=== PATIENT | male | born 1960 | race Two or more races ===

== ENCOUNTER 2018-12-28 19:56 | Emergency (ER) | payer MEDICARE, MEDICAID ==
[~2018-12-28] VITALS: Ht 172.7 cm; Wt 80.0 kg
[~2018-12-28 19:56] MED LIST: APIX5TAB3 PO; CALC667C2 PO; CARCD120C PO; FURO80TA3 PO; INSU100C10 SQ; INSU100V9 SQ; LABE300T2 PO; LANT1000 PO; PRAZ2CAP2 PO; VALS1TAB79 PO; VIT-6 PO
[2018-12-28] MEDS ORDERED: HYDR-4383 PO (22:24)
[2018-12-28] MEDS ORDERED: DOCU-28 PO (22:24)
[2018-12-28] MEDS ORDERED: HYDROcodone/acetaminophen 5mg/325mg tablet PO ONE (23:00)
[2018-12-28 23:13] VITALS: BP 161/80
== END 2018-12-28 23:15 | disposition home or self-care (01) ==
LOC: ER 19:57
DX: S92.061A Displaced intraarticular fracture of right calcaneus, initial encounter for closed fracture (principal); S90.01XA Contusion of right ankle, initial encounter; E11.22 Type 2 diabetes mellitus with diabetic chronic kidney disease; I12.0 Hypertensive chronic kidney disease with stage 5 chronic kidney disease or end stage renal disease; N18.6 End stage renal disease; K21.9 Gastro-esophageal reflux disease without esophagitis; Z98.890 Other specified postprocedural states; Z99.2 Dependence on renal dialysis; Z79.4 Long term (current) use of insulin; Z79.01 Long term (current) use of anticoagulants; Z79.899 Other long term (current) drug therapy; W11.XXXA Fall on and from ladder, initial encounter; Y93.89 Activity, other specified; Y92.89 Other specified places as the place of occurrence of the external cause; Y99.8 Other external cause status
CPT/HCPCS: 29515; 73610; 73630; 73700; 99284

== ENCOUNTER 2018-12-30 10:12 | Outpatient (CLI) | payer MEDICARE, MEDICAID ==
[~2018-12-30 10:12] MED LIST changes: +DOCU-28 PO; +HYDR-4383 PO
[2018-12-30 11:25] VITALS: BP 123/62
== END 2018-12-30 11:30 | disposition home or self-care (01) ==
LOC: ORTHO 10:12
PROVIDERS: ATTEND Orthopaedic Surgery
DX: S92.009A Unspecified fracture of unspecified calcaneus, initial encounter for closed fracture (principal); I10 Essential (primary) hypertension; E11.9 Type 2 diabetes mellitus without complications; X58.XXXA Exposure to other specified factors, initial encounter; Y93.89 Activity, other specified; Y92.89 Other specified places as the place of occurrence of the external cause; Y99.8 Other external cause status
CPT/HCPCS: 99212

== ENCOUNTER 2019-01-01 19:35 | Emergency (ER) | payer MEDICARE, MEDICAID ==
[~2019-01-01] VITALS: Ht 172.7 cm; Wt 83.0 kg
[2019-01-01 20:01] VITALS: BP 174/79
== END 2019-01-01 23:36 | disposition home or self-care (01) ==
LOC: ER 19:36
DX: S92.001D Unspecified fracture of right calcaneus, subsequent encounter for fracture with routine healing (principal); I12.9 Hypertensive chronic kidney disease with stage 1 through stage 4 chronic kidney disease, or unspecified chronic kidney disease; N18.9 Chronic kidney disease, unspecified; E11.22 Type 2 diabetes mellitus with diabetic chronic kidney disease; K21.9 Gastro-esophageal reflux disease without esophagitis; Z98.890 Other specified postprocedural states; Z79.4 Long term (current) use of insulin; Z79.899 Other long term (current) drug therapy; W11.XXXD Fall on and from ladder, subsequent encounter
CPT/HCPCS: 29515; 99284

== ENCOUNTER 2019-01-08 14:19 | Emergency (ER) | payer MEDICARE, MEDICAID ==
[~2019-01-08] VITALS: Ht 162.6 cm; Wt 83.0 kg
[2019-01-08 14:34] VITALS: BP 185/84
--- NOTE | 2019-01-08 16:03 | NUR ---
SON: PEYMAN [phone]
== END 2019-01-08 17:05 | disposition home or self-care (01) ==
LOC: ER 14:20
DX: S92.001D Unspecified fracture of right calcaneus, subsequent encounter for fracture with routine healing (principal); K21.9 Gastro-esophageal reflux disease without esophagitis; I12.0 Hypertensive chronic kidney disease with stage 5 chronic kidney disease or end stage renal disease; E11.22 Type 2 diabetes mellitus with diabetic chronic kidney disease; N18.6 End stage renal disease; Z99.2 Dependence on renal dialysis; Z98.890 Other specified postprocedural states; Z79.4 Long term (current) use of insulin; Z79.899 Other long term (current) drug therapy; W11.XXXD Fall on and from ladder, subsequent encounter
CPT/HCPCS: 29515; 73650; 99284

== ENCOUNTER 2019-02-04 11:29 | Outpatient (CLI) | payer MEDICARE, MEDICAID ==
[2019-02-04 11:47] VITALS: BP 161/91
== END 2019-02-04 12:40 | disposition home or self-care (01) ==
LOC: ORTHO 11:29
PROVIDERS: ATTEND Orthopaedic Surgery
DX: S92.001D Unspecified fracture of right calcaneus, subsequent encounter for fracture with routine healing (principal); I10 Essential (primary) hypertension; E11.9 Type 2 diabetes mellitus without complications; X58.XXXD Exposure to other specified factors, subsequent encounter
CPT/HCPCS: 73650; G0463

== ENCOUNTER 2019-03-18 11:21 | Outpatient (CLI) | payer MEDICARE, MEDICAID ==
[2019-03-18 11:44] VITALS: BP 178/104
== END 2019-03-18 13:00 | disposition home or self-care (01) ==
LOC: ORTHO 11:21
PROVIDERS: ATTEND Orthopaedic Surgery
DX: S92.021D Displaced fracture of anterior process of right calcaneus, subsequent encounter for fracture with routine healing (principal); I10 Essential (primary) hypertension; E11.9 Type 2 diabetes mellitus without complications; X58.XXXD Exposure to other specified factors, subsequent encounter
CPT/HCPCS: 73650; G0463

== ENCOUNTER → 2019-05-20 | Outpatient (CLI) | payer MEDICARE, MEDICAID | END | disposition home or self-care (01) | LOC: ORTHO 12:00 | PROVIDERS: ATTEND Orthopaedic Surgery | DX: S92.001D Unspecified fracture of right calcaneus, subsequent encounter for fracture with routine healing (principal); X58.XXXD Exposure to other specified factors, subsequent encounter | CPT/HCPCS: 73650; G0463 ==

== ENCOUNTER 2019-06-01 16:02 | Outpatient (CLI) | payer MEDICARE, MEDICAID | END 2019-06-01 23:59 | disposition home or self-care (01) | LOC: DCI 16:02 | DX: Z00.00 Encounter for general adult medical examination without abnormal findings (principal) ==

== ENCOUNTER 2019-07-13 09:23 | Outpatient (CLI) | payer MEDICARE, MEDICAID ==
[2019-07-13 10:00] VITALS: BP 184/86
== END 2019-07-13 10:11 | disposition home or self-care (01) ==
LOC: ORTHO 09:23
PROVIDERS: ATTEND Nurse Practitioner
DX: S92.334A Nondisplaced fracture of third metatarsal bone, right foot, initial encounter for closed fracture (principal); S92.344A Nondisplaced fracture of fourth metatarsal bone, right foot, initial encounter for closed fracture; S92.001D Unspecified fracture of right calcaneus, subsequent encounter for fracture with routine healing; X58.XXXA Exposure to other specified factors, initial encounter; Y93.89 Activity, other specified; Y92.89 Other specified places as the place of occurrence of the external cause; Y99.8 Other external cause status
CPT/HCPCS: 73630; 73650; G0463

== ENCOUNTER 2019-07-27 09:45 | Outpatient (CLI) | payer MEDICARE, MEDICAID ==
[2019-08-24] MEDS ORDERED: FLO0.4C PO (16:15)
[2019-08-24] MEDS ORDERED: CHOL400C8 PO (16:15)
[2019-08-24] MEDS ORDERED: PANT40TA4 PO (16:15)
[2019-08-24] MEDS ORDERED: SEVE800T7 PO (16:15)
[2019-08-24] MEDS ORDERED: DILT180C53 PO (16:15)
[2019-08-24] MEDS ORDERED: LOSA100T57 PO (16:15)
[2019-08-24] MEDS ORDERED: PRAM0.755 PO (16:15)
[2019-08-24] MEDS ORDERED: LABE100T5 PO (16:15)
[2019-08-24] MEDS ORDERED: CALC667T6 PO (16:15)
[2019-08-24] MEDS ORDERED: FOLI0.8T22 PO (16:17)
== END 2019-07-27 10:30 | disposition home or self-care (01) ==
LOC: ORTHO 09:45
PROVIDERS: ATTEND Nurse Practitioner
DX: S92.334D Nondisplaced fracture of third metatarsal bone, right foot, subsequent encounter for fracture with routine healing (principal); S92.344D Nondisplaced fracture of fourth metatarsal bone, right foot, subsequent encounter for fracture with routine healing; X58.XXXD Exposure to other specified factors, subsequent encounter
CPT/HCPCS: 73630; G0463

== ENCOUNTER 2019-08-25 10:07 | Day surgery (SDC) | payer MEDICARE, MEDICAID ==
[2019-08-24 11:50] LABS: BASOPHILS % (AUTO) 0.8 % (0-1); EOSINOPHILS # (AUTO) 0.2 X10'3 (0-0.9); EOSINOPHILS % (AUTO) 4.7 % (0-6); LYMPHOCYTES # (AUTO) 0.7 X10'3 (1.1-4.8); MEAN CORPUSCULAR HEMOGLOBIN 31.6 PG (27.0-31.0); MEAN CORPUSCULAR HGB CONC 34.4 g/dL (33.0-36.5); MEAN CORPUSCULAR VOLUME 92.1 FL (78-98); MEAN PLATELET VOLUME 8.8 FL (7.4-10.4); MONOCYTES # (AUTO) 0.7 X10'3 (0-0.9); MONOCYTES % (AUTO) 13.3 % (2-12); NEUTROPHILS # (AUTO) 3.3 X10'3 (1.8-7.7); NEUTROPHILS % (AUTO) 66.2 % (42-75); PRE OP HEMOGLOBIN 11.3 g/dL (14.0-17.9); PRE OP PLATELET COUNT 177 X10'3 (140-440); RED BLOOD COUNT 3.58 X10'6 (4.70-6.10); RED CELL DISTRIBUTION WIDTH 18.3 % (11.5-14.5)
[2019-08-24 12:17] LABS: ALBUMIN 3.9 G/DL (3.4-5.0); ALBUMIN/GLOBULIN RATIO 0.9 (1.1-1.5); ALKALINE PHOSPHATASE 175 IU/L (46-116); BLOOD UREA NITROGEN 47 MG/DL (7-18); BUN/CREATININE RATIO 7.3 (5.4-32.0); CHLORIDE 99 MMOL/L (99-107); CREATININE 6.48 MG/DL (0.60-1.10); PRE OP ALT 27 U/L (30-65); PRE OP ANION GAP 10 (8-16); PRE OP AST 21 U/L (10-37); PRE OP BILIRUB, TOTAL 0.6 MG/DL (0.0-1.0); PRE OP GLUCOSE 184 MG/DL (70-104); PRE OP POTASSIUM 4.1 MMOL/L (3.4-5.1); PRE OP SODIUM 139 MMOL/L (135-145); TOTAL CARBON DIOXIDE 29.8 MMOL/L (24-32); TOTAL PROTEIN 8.1 G/DL (6.4-8.2); eGFR 9 ML/MIN
[2019-08-25] VITALS (8 sets, daily range): BP systolic 150–210; BP diastolic 81–105
[~2019-08-25] VITALS: Ht 167.6 cm; Wt 80.0 kg
[~2019-08-25 10:07] MED LIST changes: -APIX5TAB3 PO; -CALC667C2 PO; +CALC667T6 PO; -CARCD120C PO; +CHOL400C8 PO; +DILT180C53 PO; -DOCU-28 PO; +FLO0.4C PO; +FOLI0.8T22 PO; -HYDR-4383 PO; +LABE100T5 PO; -LABE300T2 PO; -LANT1000 PO; +LOSA100T57 PO; +PANT40TA4 PO; +PRAM0.755 PO; -PRAZ2CAP2 PO; +SEVE800T7 PO; -VALS1TAB79 PO; -VIT-6 PO; +cefazolin/dext.iso 2gm/100ml 100 ML IV ONE; +famotidine 10mg tablet PO ONE; +ringers solution, lacted 1,000 ML IV SCH
[2019-08-25] MEDS ORDERED: ringers solution, lacted 1,000 ML IV SCH ×2 (12:11→15:03)
[2019-08-25] MEDS ORDERED: fentaNYL/PF 50MCG/1 ML 2ML syringe IV PRN ×2 (12:15)
[2019-08-25] MEDS ORDERED: labetalol 20mg/4ml (5mg/ml) syringe IV PRN ×2 (12:15→15:05)
[2019-08-25] MEDS ORDERED: morphine 4 MG/ML inj SYRINge IV PRN ×4 (12:15→15:05)
[2019-08-25] MEDS ORDERED: ondansetron/PF 4mg/2ml inj IV PRN ×2 (12:15→15:05)
[2019-08-25] MEDS ORDERED: hydrALAZINE 20mg/ml inj. IV PRN (12:15)
[2019-08-25] MEDS ORDERED: BUPIVAcaine/PF 2.5 mg/ml (0.25%) 30ml vial ONE (14:10)
[2019-08-25] MEDS ORDERED: heparin 10,000 units/1 ML INJ ONE (14:10)
[2019-08-25] MEDS ORDERED: sevoflurane 250ml liquid IH ONE (14:27)
[2019-08-25] MEDS ORDERED: midazolam 2 mg/2 ml injection ONE (14:30)
[2019-08-25] MEDS ORDERED: fentaNYL/PF 50MCG/1 ML 2ML syringe ONE (14:30)
[2019-08-25] MEDS ORDERED: propofol inj 20 ML IV ONE (14:30)
[2019-08-25] MEDS ORDERED: meperidine/PF 25mg/ml syringe IV PRN ×2 (15:05)
[2019-08-25] MEDS ORDERED: proCHLORperazine 10 MG/2 ml inj IV PRN (15:05)
[2019-08-25] MEDS ORDERED: hydrALAZINE 20mg/ml inj. IV ONE (15:47)
[2019-08-25] MEDS ORDERED: labetalol 20mg/4ml (5mg/ml) syringe IV ONE (15:47)
--- NOTE | 2019-08-25 16:10 | NUR ---
Received from OR via BED, accompanied by Anesthesiologist DR TORIBIO and report given by Anesthesiolgist. PATIENT A&OX4, DENIES PAIN, V/S WNL, NEUROVASCULAR CHECKS INTACT, SCD ON, LEFT WRIST DRESSING CDI ELEVATED WITH ICE BAG APPLIED. 22G RUE. BG 125
[2019-08-25] MEDS: meperidine/PF 25mg/ml syringe IV PRN ×2 (16:24→16:40)
--- NOTE | 2019-08-25 17:10 | NUR ---
PATIENT A&OX4, DENIES PAIN, V/S WNL, NEUROVASCULAR CHECKS INTACT, SCD OFF, LEFT WRIST DRESSING CDI ELEVATED WITH SLING APPLIED. 22G RUE D/C WITH NO COMPLICATIONS OBSERVED. I HAVE REVIEWED D/C INSTRUCTIONS WITH PATIENT AND FAMILY AND THEY HAVE VERBALIZED UNDERSTANDING. PATIENT D/C HOME WITH FAMILY TO TRANSPORT AND ALL BELONGINGS..
--- NOTE | 2019-08-25 17:10 | NUR ---
PATIENT A&OX4, DENIES PAIN, V/S WNL, NEUROVASCULAR CHECKS INTACT, SCD OFF, LEFT WRIST DRESSING CDI ELEVATED WITH APPLIED. 20G GAUDENCIO D/C WITH NO COMPLICATIONS OBSERVED. I HAVE REVIEWED D/C INSTRUCTIONS WITH PATIENT AND FAMILY AND THEY HAVE VERBALIZED UNDERSTANDING. PATIENT D/C HOME WITH FAMILY TO TRANSPORT AND ALL BELONGINGS.. Addendum: 08/25/19 at 1715 by Andres Rodriguez RN WRONG NOTE
== END 2019-08-25 17:10 | disposition home or self-care (01) ==
LOC: PAS 10:07
PROVIDERS: ATTEND Surgery
DX: T82.898A Other specified complication of vascular prosthetic devices, implants and grafts, initial encounter (principal); E11.22 Type 2 diabetes mellitus with diabetic chronic kidney disease; I12.0 Hypertensive chronic kidney disease with stage 5 chronic kidney disease or end stage renal disease; N18.6 End stage renal disease; N40.0 Benign prostatic hyperplasia without lower urinary tract symptoms; K21.9 Gastro-esophageal reflux disease without esophagitis; M19.90 Unspecified osteoarthritis, unspecified site; Z98.49 Cataract extraction status, unspecified eye; Z99.2 Dependence on renal dialysis; Z79.4 Long term (current) use of insulin; Z79.899 Other long term (current) drug therapy; Z98.890 Other specified postprocedural states; Y83.2 Surgical operation with anastomosis, bypass or graft as the cause of abnormal reaction of the patient, or of later complication, without mention of misadventure at the time of the procedure; Y92.89 Other specified places as the place of occurrence of the external cause
CPT/HCPCS: 36415; 36832; 80053; 82948; 85025; 93005; J0360; J1644; J2175; J2250; J2405; J2704; J3010; J3490; J7040; J7120; A4215; A4618; A6449; A7000

== ENCOUNTER 2019-08-27 07:03 | Inpatient (IN) | payer MEDICARE, MEDICAID ==
[2019-08-27] VITALS (18 sets, daily range): BP systolic 112–197; BP diastolic 48–93
[~2019-08-27] VITALS: Ht 167.6 cm; Wt 80.0 kg
[~2019-08-27 07:03] MED LIST changes: +calcium chloride 100 MG/1 ML inj IV ONE; -cefazolin/dext.iso 2gm/100ml 100 ML IV ONE; +ePHEDrine 50MG/ML INJ. ONE; +enalaprilat dihydrate 2.5mg/2ml vial IV ONE; -famotidine 10mg tablet PO ONE; +hydrALAZINE 20mg/ml inj. IV ONE; -ringers solution, lacted 1,000 ML IV SCH; +sevoflurane 250ml liquid IH ONE
[2019-08-27] MEDS ORDERED: fentaNYL/PF 50MCG/1 ML 2ML syringe ONE ×4 (07:06→11:37)
[2019-08-27] MEDS ORDERED: midazolam 2 mg/2 ml injection ONE ×2 (07:06→10:52)
[2019-08-27] MEDS ORDERED: hydrALAZINE 20mg/ml inj. IV ONE (07:26)
[2019-08-27] MEDS ORDERED: etomidate 2mg/ml inj. ONE (07:37)
[2019-08-27] MEDS ORDERED: naloxone 0.4 mg/ml inj ONE (07:39)
--- NOTE | 2019-08-27 07:55 | NUR ---
Received from OR via BED, accompanied by Anesthesiologist DR JACINTO--- and report given by Anesthesiolgist. PATIENT A&OX4, DENIES PAIN, V/S WNL, NEUROVASCULAR CHECKS INTACT, 20G PIV RUE, SCD ON, LEFT ARM DRESSING CDI WITH SOME +1 EDEMA TO RIGHT HAND DISTALLY. LUE ELVATED ON PILLOWS . BG 215 4 UNITS HUMULIN ORDERED
[2019-08-27] MEDS ORDERED: ringers solution, lacted 1,000 ML IV SCH (07:57)
[2019-08-27] MEDS ORDERED: ondansetron/PF 4mg/2ml inj IV PRN ×2 (08:00→09:45)
[2019-08-27] MEDS ORDERED: fentaNYL/PF 50MCG/1 ML 2ML syringe IV PRN ×2 (08:00)
[2019-08-27] MEDS ORDERED: morphine 4 MG/ML inj SYRINge IV PRN ×2 (08:00)
[2019-08-27] MEDS ORDERED: enalaprilat dihydrate 2.5mg/2ml vial IV PRN (08:00)
[2019-08-27] MEDS ORDERED: hydrALAZINE 20mg/ml inj. IV PRN (08:00)
[2019-08-27] MEDS ORDERED: insulin regular, human 10 units/0.1 ml syringe IV ONE (08:05)
[2019-08-27] MEDS ORDERED: insulin regular, human 10 units/0.1 ml syringe ONE (08:08)
--- NOTE | 2019-08-27 08:45 | NUR ---
PATIENT A&OX4, DENIES PAIN, V/S WNL, NEUROVASCULAR CHECKS INTACT, 18G PIV RUE, SCD ON, LEFT ARM DRESSING CDI WITH SOME +1 EDEMA TO RIGHT HAND DISTALLY. LUE ELVATED ON PILLOWS . PATIENT TAKEN TO 3024A WITH ALL BELONGINGS AND HOOKED UP TO MONITORS IN ROOM AND REPORT GIVEN TO RN WHO HAS TAKEN OVER PATIENT CARE.
--- NOTE | 2019-08-27 09:34 | NUR ---
Called Dr Decker about patient's sever pain and [place], Jeronimo will enter appropriate orders per phone call.
[2019-08-27] MEDS ORDERED: acetaminophen 325mg tablet PO PRN (09:45)
[2019-08-27] MEDS ORDERED: morphine 2 MG/ML inj. syringe IV PRN ×2 (09:45)
[2019-08-27] MEDS ORDERED: HYDROcodone/acetaminophen 10/325mg tab PO PRN (09:45)
[2019-08-27] MEDS ORDERED: LIDOcaine 1%/PF 5ML 10 MG/ML VIAL ONE (10:33)
[2019-08-27] MEDS ORDERED: heparin 1,000unit/ml 10ml vial 10 ML ONE (10:33)
[2019-08-27] MEDS ORDERED: ondansetron/PF 4mg/2ml inj ONE ×2 (10:52→12:07)
[2019-08-27] MEDS ORDERED: iohexol 300 MG/1 ML 50ml polymer ONE (11:15)
[2019-08-27] MEDS ORDERED: non-formulary drug (Insulin Lispro (Humalog) 1 UNITS) SQ SCH (13:40)
[2019-08-27] MEDS ORDERED: proCHLORperazine 10 MG/2 ml inj IV PRN (13:40)
--- NOTE | 2019-08-27 14:07 | NUR ---
Discharged. PIV taken out and tele returned. picked up patient. Given back meds from pharmacy. Took all belongings. Educated on meds. Already is aware of follow-up with PCP. Stable per Dr Ricketts for DC. Meds called into [facility] in [facility] on [address] Medicare DC rights signed. ID band cutoff. Patient walked out. Addendum: 08/27/19 at 1409 by Isaiah Gordillo RN Wrong patient
[2019-08-27] MEDS: diltiazem CD 180mg cap (once-daily) PO SCH (14:26)
[2019-08-27] MEDS: pantoprazole 40mg Tablet.DR PO SCH (14:26)
[2019-08-27] MEDS ORDERED: heparin 1,000unit/ml 10ml vial 10 ML IV ONE (15:18)
[2019-08-27] MEDS ORDERED: normal saline 1000ml 250 ML IV PRN (15:18)
[2019-08-27] MEDS ORDERED: epoetin 20,000 units/ml inj IV ONE (15:20)
[2019-08-27] MEDS ORDERED: heparin 1,000 units/ml 10ml inj HE ONE ×2 (15:25)
[2019-08-27] MEDS ORDERED: MESSAGE TO PHARMACY PO ONE (16:20)
[2019-08-27] MEDS ORDERED: dextrose 50%-water 50ml dispensing syringe IV PRN ×2 (16:20)
[2019-08-27] MEDS ORDERED: dextrose ORAL solution 15 GM/59 ML bottle PO PRN ×2 (16:20)
[2019-08-27] MEDS ORDERED: glucagon, human recombinant 1mg kit SUBCUT PRN (16:20)
--- NOTE | 2019-08-27 16:21 | NUR ---
I left Dr Decker a message asking if he wanted DM protocol on the patient.
[2019-08-27 16:35] LABS: HEMATOCRIT 27.4 % (42.0-52.0); MEAN CORPUSCULAR HEMOGLOBIN 30.9 PG (27.0-31.0); MEAN CORPUSCULAR HGB CONC 32.9 g/dL (33.0-36.5); MEAN CORPUSCULAR VOLUME 93.8 FL (78-98); MEAN PLATELET VOLUME 8.7 FL (7.4-10.4); PLATELET COUNT 200 X10'3 (140-440); RED BLOOD COUNT 2.92 X10'6 (4.70-6.10); RED CELL DISTRIBUTION WIDTH 18.4 % (11.5-14.5); WHITE BLOOD COUNT 6.3 X10'3 (4.5-11.0)
--- NOTE | 2019-08-27 17:48 | NUR ---
Per Dialysis nurse she has messaged Dr Decker to about his BP
--- NOTE | 2019-08-27 18:14 | NUR ---
Problems reprioritized. Patient report given, questions answered & plan of care reviewed with CATHERINE Zepeda.
[2019-08-27] MEDS: sevelamer carbonate 800mg tablet PO SCH (20:55)
[2019-08-27] MEDS ORDERED: tamsulosin 0.4mg capsule PO SCH (21:00)
[2019-08-27] MEDS: calcium acetate 667mg (PhosLO) capsule PO SCH ×2 (21:00→21:03)
[2019-08-27] MEDS ORDERED: insulin glargine (Lantus) pen - multi-dose SQ SCH ×2 (21:00)
[2019-08-27] MEDS ORDERED: losartan 50mg tablet PO SCH (21:00)
[2019-08-27] MEDS ORDERED: folic acid/vitamin B complex w/vitamin C 0.8mg tablet PO SCH (21:00)
[2019-08-27] MEDS: pramipexole 0.25mg tablet PO SCH (21:01)
[2019-08-27] MEDS: furosemide 40mg tablet PO SCH (21:03)
[2019-08-27] MEDS: labetalol 100mg tablet PO SCH (21:05)
[2019-08-27] MEDS: docusate sod 100mg capsule PO SCH (21:05)
--- NOTE | 2019-08-28 05:00 | NUR ---
CALLED DR. BERNABE Patient's HR has converted to A-fib- he had been in SR all night long. Gave early dose of Cardizem 180mg. Will continue to monitor.
[2019-08-28] MEDS: diltiazem CD 180mg cap (once-daily) PO SCH ×2 (05:13→08:43)
[2019-08-28 06:00] VITALS: BP 140/74
--- NOTE | 2019-08-28 06:26 | NUR ---
Problems reprioritized. Patient report given, questions answered & plan of care reviewed with Lolly ALEXANDER.
--- NOTE | 2019-08-28 06:32 | NUR ---
Patient in room PCU 3024. I have received report from CATHERINE Zepeda and had the opportunity to ask questions and assume patient care.
[2019-08-28 06:58] LABS: BASOPHILS % (AUTO) 0.8 % (0-1); EOSINOPHILS # (AUTO) 0.3 X10'3 (0-0.9); EOSINOPHILS % (AUTO) 5.6 % (0-6); HEMATOCRIT 30.4 % (42.0-52.0); LYMPHOCYTES # (AUTO) 0.5 X10'3 (1.1-4.8); LYMPHOCYTES % (AUTO) 8.4 % (21-51); MEAN CORPUSCULAR HEMOGLOBIN 31.3 PG (27.0-31.0); MEAN CORPUSCULAR HGB CONC 33.1 g/dL (33.0-36.5); MEAN CORPUSCULAR VOLUME 94.6 FL (78-98); MEAN PLATELET VOLUME 8.6 FL (7.4-10.4); MONOCYTES # (AUTO) 0.6 X10'3 (0-0.9); MONOCYTES % (AUTO) 11.9 % (2-12); NEUTROPHILS % (AUTO) 73.3 % (42-75); PLATELET COUNT 212 X10'3 (140-440); RED BLOOD COUNT 3.21 X10'6 (4.70-6.10); RED CELL DISTRIBUTION WIDTH 18.8 % (11.5-14.5); WHITE BLOOD COUNT 5.4 X10'3 (4.5-11.0)
[2019-08-28 07:36] LABS: ALANINE AMINOTRANSFERASE 10 U/L (12-78); ALBUMIN 3.3 G/DL (3.4-5.0); ALBUMIN/GLOBULIN RATIO 0.9 (1.1-1.5); ALKALINE PHOSPHATASE 132 IU/L (46-116); ANION GAP 9 (8-16); ASPARTATE AMINO TRANSFERASE 20 U/L (10-37); BILIRUBIN,TOTAL 0.5 MG/DL (0.1-1.0); BLOOD UREA NITROGEN 26 MG/DL (7-18); BUN/CREATININE RATIO 4.9 (5.4-32.0); CALCIUM 8.7 MG/DL (8.5-10.1); CHLORIDE 100 MMOL/L (99-107); CREATININE 5.31 MG/DL (0.60-1.10); GLUCOSE 185 MG/DL (70-104); MAGNESIUM 2.2 MG/DL (1.5-2.4); PHOSPHORUS 4.4 MG/DL (2.3-4.5); POTASSIUM 4.4 MMOL/L (3.5-5.1); SODIUM 139 MMOL/L (135-145); TOTAL CARBON DIOXIDE 30.2 MMOL/L (24-32); eGFR 11 ML/MIN
[2019-08-28] MEDS: docusate sod 100mg capsule PO SCH (08:39)
[2019-08-28] MEDS: sevelamer carbonate 800mg tablet PO SCH ×2 (08:43→12:59)
[2019-08-28] MEDS: calcium acetate 667mg (PhosLO) capsule PO SCH ×2 (08:43→13:00)
[2019-08-28] MEDS: pantoprazole 40mg Tablet.DR PO SCH (08:43)
[2019-08-28] MEDS: labetalol 100mg tablet PO SCH ×2 (08:44→13:00)
[2019-08-28] MEDS: furosemide 40mg tablet PO SCH (08:44)
[2019-08-28] MEDS: insulin Lispro (HumaLOG) vial - multi-dose SQ SCH ×2 (08:53→13:06)
[2019-08-28] MEDS: pramipexole 0.25mg tablet PO SCH (10:29)
[2019-08-28 11:00] VITALS: BP 150/81
--- NOTE | 2019-08-28 16:36 | NUR ---
Pt was to leave around 1430 today, but as he was being wheeled out, pt stated that he needed his sugar check and that it may be low. Assessed blood sugar and sugars came back as follows: 50, 62, 69, 55, 45, and 124. Pt was first given two juice boxes, the given juice boxes with sugar, juice boxes with sugar and an ensure, juice boxes with sugar and a sandwich, and finally juice with sugar and a glucose shot 15gm. When reassessed 15 mins later, BS read 124. Throughout hypoglycemic episode, patient was a bit diaphoretic, but alert, oriented, and conversed with nurse. Pt left with additional juice and sugar. Pt is stable for discharge per MD orders. Reviewed discharge paperwork with pt and family and pt signed. Answered any questions pt and family member had regarding discharge. No new medications needed to be called into pharmacy. All belongings sent with pt. Tele monitor removed. PIV removed in the morning with cannula intact. Pt wheeled to lobby with facility staff and sent home in a private vehicle with sister.
== END 2019-08-28 16:15 | disposition home or self-care (01) | DRG 252 ==
LOC: PACU 07:03 → PCU 3S 08:46 → UNDODISIN 08-28 14:49
PROVIDERS: ADMIT Surgery; ATTEND Internal Medicine Critical Care Medicine
PROC: 02HV33Z Insertion of Infusion Device into Superior Vena Cava, Percutaneous Approach (ICD-10-PCS; 2019-08-27)
PROC: B548ZZA Ultrasonography of Superior Vena Cava, Guidance (ICD-10-PCS; 2019-08-27)
PROC: 5A1D70Z Performance of Urinary Filtration, Intermittent, Less than 6 Hours Per Day (ICD-10-PCS; 2019-08-27)
PROC: 0JH63XZ Insertion of Tunneled Vascular Access Device into Chest Subcutaneous Tissue and Fascia, Percutaneous Approach (ICD-10-PCS; principal; 2019-08-27 06:55)
PROC: 05CY0ZZ Extirpation of Matter from Upper Vein, Open Approach (ICD-10-PCS; 2019-08-28)
DX: T82.510A Breakdown (mechanical) of surgically created arteriovenous fistula, initial encounter (principal); N18.6 End stage renal disease; I12.0 Hypertensive chronic kidney disease with stage 5 chronic kidney disease or end stage renal disease; Y83.2 Surgical operation with anastomosis, bypass or graft as the cause of abnormal reaction of the patient, or of later complication, without mention of misadventure at the time of the procedure; E11.22 Type 2 diabetes mellitus with diabetic chronic kidney disease; N40.0 Benign prostatic hyperplasia without lower urinary tract symptoms; Y71.2 Prosthetic and other implants, materials and accessory cardiovascular devices associated with adverse incidents; Z79.4 Long term (current) use of insulin; Z99.2 Dependence on renal dialysis; Z79.899 Other long term (current) drug therapy
CPT/HCPCS: 36415; 36558; 76937; 77001; 80053; 82948; 83036; 83735; 84100; 85025; 85027; 87081; 99152; 99153; 99285; A4215; A4618; A6213; A6446; A6449; A7000; A9270; C1750; C1769; C1894; G0257; G0378; J0360; J0780; J1644; J1815; J2250; J2270; J2310; J2405; J3010; J7030; J7040; J7120; Q4081; Q9967

== ENCOUNTER 2019-09-02 15:25 | Outpatient (CLI) | payer MEDICARE, MEDICAID ==
[~2019-09-02 15:25] MED LIST changes: -calcium chloride 100 MG/1 ML inj IV ONE; -ePHEDrine 50MG/ML INJ. ONE; -enalaprilat dihydrate 2.5mg/2ml vial IV ONE; -hydrALAZINE 20mg/ml inj. IV ONE; -sevoflurane 250ml liquid IH ONE
== END 2019-09-02 16:30 | disposition home or self-care (01) ==
LOC: ORTHO 15:25
PROVIDERS: ATTEND Nurse Practitioner
DX: S92.351D Displaced fracture of fifth metatarsal bone, right foot, subsequent encounter for fracture with routine healing (principal); S92.341D Displaced fracture of fourth metatarsal bone, right foot, subsequent encounter for fracture with routine healing; M25.774 Osteophyte, right foot; X58.XXXD Exposure to other specified factors, subsequent encounter
CPT/HCPCS: 73630; G0463

== ENCOUNTER 2019-09-13 21:34 | Emergency (ER) | payer MEDICARE, MEDICAID ==
[~2019-09-13] VITALS: Ht 160 cm; Wt 89.0 kg
[2019-09-13 22:11] LABS: BASOPHILS % (AUTO) 0.4 % (0-1); EOSINOPHILS # (AUTO) 0.1 X10'3 (0-0.9); EOSINOPHILS % (AUTO) 0.9 % (0-6); HEMATOCRIT 34.6 % (42.0-52.0); HEMOGLOBIN 11.5 g/dl (14.0-17.9); LYMPHOCYTES # (AUTO) 0.1 X10'3 (1.1-4.8); MEAN CORPUSCULAR HEMOGLOBIN 31.5 PG (27.0-31.0); MEAN CORPUSCULAR HGB CONC 33.3 g/dL (33.0-36.5); MEAN CORPUSCULAR VOLUME 94.5 FL (78-98); MEAN PLATELET VOLUME 8.8 FL (7.4-10.4); MONOCYTES % (AUTO) 0.3 % (2-12); NEUTROPHILS % (AUTO) 96.4 % (42-75); PLATELET COUNT 215 X10'3 (140-440); RED BLOOD COUNT 3.66 X10'6 (4.70-6.10); RED CELL DISTRIBUTION WIDTH 19.1 % (11.5-14.5); WHITE BLOOD COUNT 6.2 X10'3 (4.5-11.0)
[2019-09-13 22:18] LABS: ANION GAP 10 (8-16); CHLORIDE 93 MMOL/L (99-107); GLUCOSE 421 MG/DL (70-104); POTASSIUM 4.3 MMOL/L (3.5-5.1); SODIUM 133 MMOL/L (135-145); TOTAL CARBON DIOXIDE 30.3 MMOL/L (24-32)
[2019-09-13 22:19] LABS: ALANINE AMINOTRANSFERASE 18 U/L (12-78); ALBUMIN 3.9 G/DL (3.4-5.0); ALKALINE PHOSPHATASE 185 IU/L (46-116); ASPARTATE AMINO TRANSFERASE 22 U/L (10-37); BILIRUBIN,TOTAL 0.6 MG/DL (0.1-1.0); BLOOD UREA NITROGEN 31 MG/DL (7-18); BUN/CREATININE RATIO 5.7 (5.4-32.0); CALCIUM 9.1 MG/DL (8.5-10.1); CREATININE 5.41 MG/DL (0.60-1.10); TOTAL PROTEIN 7.8 G/DL (6.4-8.2); eGFR 11 ML/MIN
[2019-09-13 22:23] VITALS: BP 144/113
[2019-09-13] MEDS ORDERED: insulin regular, human 10 units/0.1 ml syringe SQ ONE (22:25)
[2019-09-13] MEDS ORDERED: cloNIDine 0.1 mg tablet PO ONE (23:10)
[2019-09-13] MEDS ORDERED: ondansetron 4mg rapidly disintigrating tab PO ONE (23:10)
[2019-09-13] MEDS ORDERED: HYDROcodone/acetaminophen 5mg/325mg tablet PO ONE (23:10)
[2019-09-13 23:32] LABS: ANISOCYTOSIS 2+; PLATELET ESTIMATE NORMAL
== END 2019-09-13 23:26 | disposition home or self-care (01) ==
LOC: ER 21:34
DX: G89.29 Other chronic pain (principal); M54.9 Dorsalgia, unspecified; R51 Headache; I12.0 Hypertensive chronic kidney disease with stage 5 chronic kidney disease or end stage renal disease; E11.22 Type 2 diabetes mellitus with diabetic chronic kidney disease; N18.6 End stage renal disease; E11.65 Type 2 diabetes mellitus with hyperglycemia; K21.9 Gastro-esophageal reflux disease without esophagitis; Z99.2 Dependence on renal dialysis; Z98.890 Other specified postprocedural states; Z79.4 Long term (current) use of insulin; Z79.899 Other long term (current) drug therapy
CPT/HCPCS: 36415; 71045; 80053; 82948; 84484; 85025; 93005; 96372; 99284; J1815

== ENCOUNTER 2020-05-15 10:36 | Emergency (ER) | payer MEDICARE, MEDICAID ==
[~2020-05-15] VITALS: Ht 165.1 cm; Wt 77.0 kg
[~2020-05-15 10:36] MED LIST changes: -PANT40TA4 PO; +PANT40TA54 PO
[2020-05-15 11:22] LABS: CLARITY,URINE SLIGHTLY CLOUDY (Clear); COLOR,URINE YELLOW (Yellow); GLUCOSE, URINE NEGATIVE (Neg); KETONES,URINE NEGATIVE (Neg); LEUKOCYTE ESTERASE ,URINE SMALL (Neg); NITRITES, URINE NEGATIVE (Neg); OCCULT BLOOD,URINE NEGATIVE (Neg); PROTEIN,URINE TRACE mg/dl (Neg); UROBILINOGEN,URINE 0.2 E.U/dL (0.2-1.0)
[2020-05-15 11:24] LABS: UA COLLECTION TYPE CLN CATCH MIDSTREAM
[2020-05-15 11:35] LABS: BACTERIA,URINE 4+ /HPF (Neg); MUCUS STRANDS NONE SEEN /LPF (Neg); RBC,URINE 0-2 /HPF (0-2); SQUAMOUS EPITHELIAL CELL,UR FEW /LPF (FEW); TRANSITIONAL EPI CELLS,URINE FEW /HPF
[2020-05-15 11:36] LABS: SPERM FEW /HPF (NEGATIVE)
[2020-05-15] MEDS ORDERED: normal saline 1000ML IV soln IVB ONE ×2 (12:15→13:45)
[2020-05-15] MEDS ORDERED: morphine 4 MG/ML inj SYRINge IV ONE ×2 (12:20→18:45)
[2020-05-15] MEDS ORDERED: morphine 10mg/ml inj. IV ONE ×2 (12:20→18:45)
[2020-05-15 13:15] LABS: BASOPHILS % (AUTO) 0.1 % (0-1); EOSINOPHILS % (AUTO) 0.1 % (0-6); LYMPHOCYTES # (AUTO) 0.1 X10'3 (1.1-4.8); LYMPHOCYTES % (AUTO) 1.5 % (21-51); MEAN CORPUSCULAR HEMOGLOBIN 33.2 PG (27.0-31.0); MEAN CORPUSCULAR HGB CONC 32.4 g/dL (33.0-36.5); MEAN CORPUSCULAR VOLUME 102.4 FL (78-98); MEAN PLATELET VOLUME 8.3 FL (7.4-10.4); MONOCYTES # (AUTO) 0.3 X10'3 (0-0.9); MONOCYTES % (AUTO) 5.2 % (2-12); NEUTROPHILS # (AUTO) 5.7 X10'3 (1.8-7.7); NEUTROPHILS % (AUTO) 93.1 % (42-75); PLATELET COUNT 274 X10'3 (140-440); RED BLOOD COUNT 1.95 X10'6 (4.70-6.10); RED CELL DISTRIBUTION WIDTH 15.1 % (11.5-14.5); WHITE BLOOD COUNT 6.1 X10'3 (4.5-11.0)
[2020-05-15 13:27] LABS: HEMOGLOBIN 6.5 g/dl (14.0-17.9)
[2020-05-15 13:28] LABS: HEMATOCRIT 19.9 % (42.0-52.0)
[2020-05-15 13:30] LABS: ALANINE AMINOTRANSFERASE 23 U/L (12-78); ALBUMIN 3.8 G/DL (3.4-5.0); ALBUMIN/GLOBULIN RATIO 1.1 (1.1-1.5); ALKALINE PHOSPHATASE 176 IU/L (46-116); ANION GAP 10 (8-16); ASPARTATE AMINO TRANSFERASE 12 U/L (10-37); BILIRUBIN,TOTAL 0.9 MG/DL (0.1-1.0); BLOOD UREA NITROGEN 34 MG/DL (7-18); BUN/CREATININE RATIO 19.5 (5.4-32.0); CALCIUM 9.6 MG/DL (8.5-10.1); CHLORIDE 104 MMOL/L (99-107); CREATININE 1.74 MG/DL (0.60-1.10); GLUCOSE 197 MG/DL (70-104); MAGNESIUM 1.9 MG/DL (1.5-2.4); POTASSIUM 4.8 MMOL/L (3.5-5.1); SODIUM 135 MMOL/L (135-145); TOTAL CARBON DIOXIDE 21.2 MMOL/L (24-32); TOTAL PROTEIN 7.4 G/DL (6.4-8.2); eGFR 41 ML/MIN
[2020-05-15] MEDS ORDERED: iohexol 350MG/ML 100ml bottle IV ONE (13:44)
--- NOTE | 2020-05-15 13:50 | NUR ---
RELIEVING RN FOR BREAK, PT WENT TO CT
--- NOTE | 2020-05-15 15:14 | NUR ---
ronaldo to be called if any changes in poc occurs.phone no [phone]
[2020-05-15] MEDS ORDERED: ondansetron/PF 4mg/2ml inj IV ONE ×2 (15:30→17:50)
--- NOTE | 2020-05-15 15:44 | NUR ---
DRE ERIC AT BEDSIDE ,HEMOCCULT SCREENING DONE WITH THE PROVIDER.
[2020-05-15 15:56] LABS: LACTATE DEHYDROGENASE 173 U/L (85-227)
[2020-05-15] MEDS ORDERED: PRAM0.129 PO (17:07)
[2020-05-15 17:16] LABS: OCCULT BLOOD STOOL NEGATIVE (Neg)
[2020-05-15 17:41] VITALS: BP 146/75
[2020-05-15 18:04] VITALS: BP 156/75
--- NOTE | 2020-05-15 18:15 | NUR ---
PT BLD TRANSFUSION STOPPED PER DRE ERIC PT HAS RECENT [facility] AND PER DR JEAN BAPTISTE THEY USUALLY DO SPECIAL BLD PT IS IMMUNOCOMPROMISED,PT WILL BE GOING TO [facility].AURORA ALEXANDER GOING TO TALK TO THE PT SON TO EXPLAIN THE PLAN OF CARE.
[2020-05-15 18:17] VITALS: BP 134/71
--- NOTE | 2020-05-15 18:22 | NUR ---
AURORA SPOKE TO PT SON REGARDING POC.SON IS AWARE.
[2020-05-15 20:41] VITALS: BP 158/72
== END 2020-05-15 20:45 | disposition short-term general hospital (02) ==
LOC: ER 10:37
DX: M54.9 Dorsalgia, unspecified (principal); I12.0 Hypertensive chronic kidney disease with stage 5 chronic kidney disease or end stage renal disease; K21.9 Gastro-esophageal reflux disease without esophagitis; N18.6 End stage renal disease; E11.22 Type 2 diabetes mellitus with diabetic chronic kidney disease; G89.29 Other chronic pain; Z98.890 Other specified postprocedural states; Z94.0 Kidney transplant status; Z79.4 Long term (current) use of insulin; Z79.899 Other long term (current) drug therapy
CPT/HCPCS: 36415; 36430; 71045; 71275; 74174; 80053; 81001; 82272; 83615; 83735; 84145; 84484; 85025; 86885; 86900; 86901; 86920; 87077; 87088; 87186; 93005; 96361; 96374; 96375; 96376; 99285; J2270; J2405; J7030; P9016; Q9967